=== PATIENT | male | born 1995 | race Caucasian/White ===

== ENCOUNTER 2017-11-08 11:54 | Emergency (ER) | payer SELFPAY, OTHER ==
[2017-11-08] MEDS: LORAZEPAM 1 MG TAB PO (12:30)
== END 2017-11-08 13:07 | disposition home or self-care (01) ==
LOC: E/R 11:54 → FTE 13:07
DX: F41.9 Anxiety disorder, unspecified (principal)
CPT/HCPCS: 99283